=== PATIENT | female | born 1990 | race American Indian/Alaskan Native ===

== ENCOUNTER 2021-09-11 23:02 | Emergency (ER) | payer SELFPAY ==
[2021-09-11] MEDS ORDERED: IBUPROFEN 600 MG TAB PO ONE (23:22)
[2021-09-11] MEDS ORDERED: ACETAMINOPHEN 500 MG TAB PO ONE (23:22)
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
[2021-09-12 01:17] VITALS: BP 133/79
== END 2021-09-12 01:17 | disposition home or self-care (01) ==
LOC: ED 23:02
DX: M62.838 Other muscle spasm (principal); M54.2 Cervicalgia; F43.10 Post-traumatic stress disorder, unspecified; Z79.899 Other long term (current) drug therapy; V89.2XXA Person injured in unspecified motor-vehicle accident, traffic, initial encounter; Y93.89 Activity, other specified; Y92.488 Other paved roadways as the place of occurrence of the external cause; Y99.8 Other external cause status
CPT/HCPCS: 70450; 72125; 99283